=== PATIENT | male | born 1955 | race Caucasian/White ===

== ENCOUNTER → 2016-12-03 | Outpatient (CLI) | payer BC, OTHER ==
[2016-12-03 13:27] LABS: BLOOD UREA NITROGEN 13 mg/dl (7-18); GLUCOSE 274 mg/dl (70-99)
[2016-12-03 13:28] LABS: ALT/SGPT 163 U/L (12-78); AST/SGOT 115 U/L (15-37); BUN/CREATININE RATIO 13.2 (10-20); CARBON DIOXIDE 26 mmol/L (21-32); CHLORIDE 100 mmol/L (98-107); POTASSIUM 4.3 mmol/L (3.5-5.1); SODIUM 136 mmol/L (136-145)
[2016-12-03 13:38] LABS: ALB/GLOB RATIO 0.9 (0.9-2); ALKALINE PHOSPHATASE 108 U/L (45-117); CHOLESTEROL 190 mg/dl (0-200); CHOLESTEROL/HDL RATIO 3.5; HDL CHOLESTEROL 55 mg/dl; LDL CHOLESTEROL CALCULATED 109 mg/dl; TRIGLYCERIDES 131 mg/dl (0-150); VERY LOW DENSITY LIPOPROT CALC 26 mg/dl
[2016-12-03 14:06] LABS: HEMATOCRIT 45.5 % (42-52); MEAN CELL VOLUME 96.6 fL (80-100); MEAN CORPUSCULAR HEMOGLOBIN 34.4 pg (25-34); MEAN CORPUSCULAR HGB CONC 35.6 g/dl (32-36); MEAN PLATELET VOLUME 11.7 fL (7.4-10.4); PLATELET COUNT 100 K/uL (130-400); RED BLOOD COUNT 4.71 M/uL (4.7-6.1); WHITE BLOOD COUNT 4.18 K/uL (4.8-10.8)
== END | disposition home or self-care (01) ==
LOC: C.LABMFLN 10:43
PROVIDERS: ATTEND Family Medicine
DX: Z00.00 Encounter for general adult medical examination without abnormal findings (principal); Z13.1 Encounter for screening for diabetes mellitus; Z13.220 Encounter for screening for lipoid disorders; E78.01 Familial hypercholesterolemia; R53.83 Other fatigue; Z12.12 Encounter for screening for malignant neoplasm of rectum; Z12.11 Encounter for screening for malignant neoplasm of colon; I10 Essential (primary) hypertension; R68.82 Decreased libido

== ENCOUNTER → 2017-05-02 | Outpatient (CLI) | payer BC ==
[2017-05-02 13:25] LABS: ESTIMATED AVERAGE GLUCOSE 189 mg/dl; HA1C FLAG Normal (Normal)
== END | disposition home or self-care (01) ==
LOC: C.LABMFLN 10:03
PROVIDERS: ATTEND Family Medicine
DX: E11.9 Type 2 diabetes mellitus without complications (principal); F10.20 Alcohol dependence, uncomplicated

== ENCOUNTER 2019-07-30 18:37 | Inpatient (IN) ==
[2019-07-30] MEDS ORDERED: SODIUM CHLORIDE 0.9% 1000ML 1,000 ML IV SCH (18:45)
[2019-07-30 19:11] LABS: Appearance Urine Clear (Clear); Bilirubin Urine Negative (Negative); Blood Urine Negative (Negative); Color Urine Dark Yellow; Glucose Urine UA 3+ (Negative); Ketones Urine Negative (Negative); Leukocyte Esterase Urine Negative (Negative); Nitrite Urine Negative (Negative); Protein Urine Negative (Negative); Specific Gravity Urine 1.036 (1.000-1.030); Urobilinogen Urine Negative (Negative)
[2019-07-30 19:18] LABS: Basophils # (auto) 0.01 K/uL (0-0.2); Basophils % (auto) 0.1 %; Eosinophils # (auto) 0.04 K/uL (0-0.5); Eosinophils % (auto) 0.6 %; Hematocrit (blood only) 47.4 % (42-52); Hemoglobin 16.8 g/dL (14.0-18.0); Immature Granulocytes # (auto) 0.02 K/uL (0.00-0.02); Immature Granulocytes % (auto) 0.3 %; Lymphocytes # (auto) 1.05 K/uL (1.2-3.4); Mean Corpuscular Hemoglobin 34.1 pg (25-34); Mean Corpuscular Hgb Conc 35.4 g/dL (32-36); Mean Corpuscular Volume 96.1 fL (80-100); Mean Platelet Volume 11.4 fL (7.4-10.4); Monocytes # (auto) 0.56 K/uL (0.11-0.59); Neutrophils # (auto) 5.31 K/uL (1.4-6.5); Platelet Count 124 K/uL (130-400); RDW Standard Deviation 45.4 fL (36.4-46.3); Red Blood Count 4.93 M/uL (4.7-6.1); White Blood Count 6.99 K/uL (4.8-10.8)
[2019-07-30 19:41] LABS: Albumin Globulin Ratio 0.8 (0.9-2); Albumin Level 3.9 gm/dl (3.4-5.0); BUN Creatinine Ratio 14.6 (10-20); Bilirubin,Total 1.1 mg/dl (0.2-1); Calcium 9.8 mg/dl (8.5-10.1); Creatinine Clr Calc Pharmacy 87.7 ml/min; Est GFR (African American) 86.8; Est GFR (Non-African American) 74.8; Globulin 5.1 gm/dl (2.5-4.0)
--- NOTE | 2019-07-30 19:52 | CT Scan Report ---
CT SCAN OF THE ABDOMEN AND PELVIS WITHOUT CONTRAST CLINICAL HISTORY: Abdominal pain. Diabetes. COMPARISON STUDY: No previous studies for comparison. TECHNIQUE: CT scan of the abdomen and pelvis was performed from the lung bases to the proximal femurs . Images are reviewed in the axial, sagittal, and coronal planes. IV contrast was not administered fo r this examination. A dose lowering technique was utilized adhering to the principles of ALARA. CT DOSE: 773.52 mGy.cm FINDINGS: Lower chest: There are linear parenchymal opacities at the lung bases, likely atelectatic. Liver: The unenhanced liver is normal in size, contour, and attenuation. There is no intrahepatic olivia iary ductal dilatation. Gallbladder: Unremarkable. Spleen: Enlarged measuring 16 cm Pancreas: No intrinsic pancreatic masses are visualized in this noncontrast study. There is no ductal dilatation. Adrenal glands: Unremarkable. Kidneys: No renal, ureteral, or bladder calculi are visualized. There is no hydronephrosis. Bowel: There are no transition zones indicate bowel obstruction. There are scattered colonic divertic vini. There is no evidence of acute diverticulitis. The appendix appears normal. Peritoneum: There is trace pelvic free fluid. There is no free intraperitoneal air. There is a tiny f at-containing umbilical hernia and small fat-containing inguinal hernias. Vasculature: The abdominal aorta is normal in course and caliber. Adenopathy: There are minimally prominent mesenteric lymph nodes. There is infiltration of the centra l mesentery. Pelvic viscera: The bladder, and pelvic viscera are unremarkable. Skeletal structures: No destructive osseous lesions are seen. IMPRESSION: 1. No evidence of bowel obstruction. No evidence of free air 2. No evidence of acute diverticulitis. No evidence of acute appendicitis 3. No renal, ureteral, or bladder calculi identified 4. Lesley mesentery with trace free pelvic fluid. Likely diagnostic considerations include mesenteric panniculitis, pancreatitis, or venoocclusive disease. Lymphoma is also within differential, but not f elt likely as the patient's mesenteric lymph nodes do not exceed 1 cm in short axis. 5. Splenomegaly Electronically signed by: Shoaib Davidson M.D. 07/30/2019 7:50 PM
[2019-07-30 20:14] LABS: Potassium 4.1 mmol/L (3.5-5.1)
[2019-07-30] MEDS ORDERED: OPTIRAY 320 125ml IV PRN (20:40)
--- NOTE | 2019-07-30 20:59 | CT Scan Report ---
CT angio abdomen pelvis w con CT DOSE: 1718.41 mGy.cm CLINICAL HISTORY: Severe mid abdominal pain. Abnormal noncontrast CT scan with mesenteric edema. Eval uate for vascular etiology. TECHNIQUE: CT angiography of the abdomen and pelvis was performed in a dynamic helical fashion during intravenous administration of 116 cc of Optiray 320. Arterial phase and portal phase imaging was per formed. MIP images were acquired. A dose lowering technique was utilized adhering to the principles of ALARA. COMPARISON STUDY: Noncontrast examination performed 07/30/2019 FINDINGS: There is no evidence for abdominal aortic aneurysm. There is no evidence for celiac, superior mesenteric, renal, or inferior mesenteric artery stenosis. There is no evidence for iliac artery stenosis. There is no evidence for aortic dissection. Portal venous phase imaging demonstrates thrombosis of the superior mesenteric vein and multiple SMA branches. There is associated mesenteric edema. The thrombus extends into the portal vein. There is n o evidence for splenic vein thrombosis. IMPRESSION: 1. No evidence of arterial stenosis or occlusion 2. 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 Electronically signed by: Shoaib Davidson M.D. 07/30/2019 8:57 PM
[2019-07-30] MEDS ORDERED: SODIUM CHLORIDE 0.9% 1000ML 1,000 ML IV STA (21:20)
[2019-07-30] MEDS ORDERED: Heparin IV Low Dose WITH Bolus STA (21:20)
[2019-07-30] MEDS ORDERED: HEPARIN SOD (PORCINE) 1000 UNIT/ML 10 ML VIAL ONE (21:28)
[2019-07-30] MEDS: HEPARIN SODIUM/DEXTROSE 25,000 UNITS/500 ML BAG IV SCH (21:35)
[2019-07-30 21:40] LABS: INR 1.1 (0.9-1.1); Partial Thromboplastin Time 26.2 Seconds (21.0-31.0); Prothrombin Time 10.8 Seconds (9.0-12.0)
--- NOTE | 2019-07-30 23:52 | History & Physical Report ---
Date of Service July 30, 2019 Assessment & Plan (1) Superior mesenteric vein thrombosis: 64-year-old male with history of diabetes, fatty liver presents with abdominal pain, bloating and decreased appetite x1 week. Likely in the setting of chronic liver disease with portal hypertension and congestive splenomegaly. Superior mesenteric vein and portal vein thrombosis with splenomegaly: Likely in the setting of chronic liver disease with portal hypertension and congestive splenomegaly versus possible hypercoagulable disorder Patient reports history of fatty liver diagnosis based on biopsy when he was age 39-40 Vitals stable CTA abdomen/pelvis: SMV thrombosis with extension into proximal portal vein Abdomen/pelvis CT: Splenomegaly, louis mesentery with trace pelvic fluid and given above findings likely related to venoocclusive disease LFT abnormalities: Total bili 1.1, AST 56 Started on heparin drip Hypercoagulable work-up not ordered as patient already started on heparin GI consulted Thrombocytopenia: Likely related to alcohol intake and chronic liver disease with portal hypertension congestive splenomegaly Platelet count 124 Continue to monitor Diabetes Hemoglobin A1c ordered On SSI FEN/GI: N.p.o. for possible procedure, on NS 125 cc/h DVT prophylaxis: Heparin Code: Full Disposition: PCU (2) Portal vein thrombosis: (3) Diabetes: (4) Fatty liver determined by biopsy: (5) Thrombocytopenia: History of Present Illness Chief Complaint: Abdominal pain, bloating, decreased appetite Primary Care Provider: Migue Adan MD 64-year-old male with history of diabetes, fatty liver presents with abdominal pain, bloating and decreased appetite x1 week. Patient reports being on vacation at [facility] from July 18 to July 25. He reports 2-hour flight and then 2-hour car ride to destination during which he was very sedent jamila. Then he partied hard with family for about 3 days, drank alcohol pretty much every dayChampion in the morning and a beer every hour until late at night with very little fluid intake. 5 days into his trip he developed abdominal cramping, bloating and decreased appetite and he had not had a bowel movement for about 3 days at that point. He finally had a normal bowel movement 2 days later. He returned last Saturday on the with similar symptoms and treated constipation with laxative after which she had some diarrhea but stool was nonbloody and not dark. He has become constipated again but has also had very little intake since start of symptoms. He also reports discomfort when he does attempt to eat. He denies any fever, chills, headache, lightheadedness, shortness of breath, chest pain, nausea, vomiting, hematuria, hematochezia, melena, dysuria. Reports history of fatty liver since biopsy at age 39-40. He reports elevated liver enzymes since age 27, his AST has usually been in the 150s. He reports being a heavy drinker most of his life, mainly binge drinks when he is social on the weekends especially. Denies any personal or family history of bleeding disorders or blood clots Social history: Reports drinking anywhere from 3-7 alcoholic drinks every weekend day, denies smoking and recreational drug use Family history: Father of cirrhosis at age 50, mother at age 80 of sepsis, one sibling has alcoholism otherwise siblings are healthy, children all healthy Surgical history: None Allergies Allergy/AdvReac Type Severity Reaction Status Date / Time No Known Allergies Allergy Verified 07/30/19 19:32 Home Medications Home Medications Medication Instructions Recorded Confirmed Type multivitamin tablet 1 tab PO DAILY #90 tab 07/20/19 07/30/19 Rx metformin 750 mg PO DAILY 07/30/19 07/30/19 History Past Med/Surg History Medical History Cirrhosis (Chronic) Alcoholism (Chronic) Diabetes (Chronic) Surgical History No pertinent past surgical history Family History Father Alcoholism, Onset Age: 50 Cirrhosis Brother Alcoholism Social History Preferred Language: Welsh Communication Ability: Effective Beliefs That Will Affect Care: None Current Living Situation: Spouse Feels Safe at Home: Yes Safety Concerns: Feels Safe At This Time Smoking Status: Never smoker Do You Dip or Chew Tobacco: No ; Hx Alcohol Use: Yes Alcohol type: beer Hx Substance Use: No Review of Systems Review of Systems: As per HPI Physical Exam Physical Exam: General: In NAD, pleasant Neuro: A&O x 4 Pulm: CTAB equal breath sounds bilaterally CV: RRR, no m/r/g, cap refill 3 secs Abdomen:+BS, TTP in epigastric and lorraine-umbilical region, somewhat distended, obese abdomen LE: no LE edema, no calf TTP Results & Data Vital Signs (Past 12 Hours) Vital Signs Temp Pulse Pulse Resp BP BP Pulse Ox 07/30/19 23:15 69 18 139/88 96 07/30/19 21:15 65 16 131/86 95 07/30/19 19:57 76 16 133/73 93 07/30/19 18:38 36.9 C 83 16 142/88 H 100 Laboratory Results Abnormal lab results 07/30/19 07/30/19 07/30/19 Range/Units 19:00 19:00 19:00 MCH 34.1 H (25-34) pg Plt Count 124 L (130-400) K/uL MPV 11.4 H (7.4-10.4) fL Lymph # (Auto) 1.05 L (1.2-3.4) K/uL Glucose 224 H (70-99) mg/dl Total Bilirubin 1.1 H (0.2-1) mg/dl AST (15-37) U/L Total Protein 9.0 H (6.4-8.2) gm/dl Globulin 5.1 H (2.5-4.0) gm/dl Albumin/Globulin Ratio 0.8 L (0.9-2) Ur Specific [place] 1.036 H (1.000-1.030) Urine Glucose (UA) 3+ H (Negative) 07/30/19 Range/Units 19:49 MCH (25-34) pg Plt Count (130-400) K/uL MPV (7.4-10.4) fL Lymph # (Auto) (1.2-3.4) K/uL Glucose (70-99) mg/dl Total Bilirubin (0.2-1) mg/dl AST 56 H (15-37) U/L Total Protein (6.4-8.2) gm/dl Globulin (2.5-4.0) gm/dl Albumin/Globulin Ratio (0.9-2) Ur Specific [place] (1.000-1.030) Urine Glucose (UA) (Negative) Diagnostic Findings CT angio abdomen pelvis w con CT DOSE: 1718.41 mGy.cm CLINICAL HISTORY: Severe mid abdominal pain. Abnormal noncontrast CT scan with mesenteric edema. Evaluate for vascular etiology. TECHNIQUE: CT angiography of the abdomen and pelvis was performed in a dynamic helical fashion during intravenous administration of 116 cc of Optiray 320. Arterial phase and portal phase imaging was performed. MIP images were acquired. A dose lowering technique was utilized adhering to the principles of ALARA. COMPARISON STUDY: Noncontrast examination performed 07/30/2019 FINDINGS: There is no evidence for abdominal aortic aneurysm. There is no evidence for celiac, superior mesenteric, renal, or inferior mesenteric artery stenosis. There is no evidence for iliac artery stenosis. There is no evidence for aortic dissection. Portal venous phase imaging demonstrates thrombosis of the superior mesenteric vein and multiple SMA branches. There is associated mesenteric edema. The thrombus extends into the portal vein. There is no evidence for splenic vein thrombosis. IMPRESSION: 1. No evidence of arterial stenosis or occlusion 2. 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 CT SCAN OF THE ABDOMEN AND PELVIS WITHOUT CONTRAST CLINICAL HISTORY: Abdominal pain. Diabetes. COMPARISON STUDY: No previous studies for comparison. TECHNIQUE: CT scan of the abdomen and pelvis was performed from the lung bases to the proximal femurs. Images are reviewed in the axial, sagittal, and coronal planes. IV contrast was not administered for this examination. A dose lowering technique was utilized adhering to the principles of ALARA. CT DOSE: 773.52 mGy.cm FINDINGS: Lower chest: There are linear parenchymal opacities at the lung bases, likely atelectatic. Liver: The unenhanced liver is normal in size, contour, and attenuation. There is no intrahepatic biliary ductal dilatation. Gallbladder: Unremarkable. Spleen: Enlarged measuring 16 cm Pancreas: No intrinsic pancreatic masses are visualized in this noncontrast study. There is no ductal dilatation. Adrenal glands: Unremarkable. Kidneys: No renal, ureteral, or bladder calculi are visualized. There is no hydr onephrosis. Bowel: There are no transition zones indicate bowel obstruction. There are scattered colonic diverticula. There is no evidence of acute diverticulitis. The appendix appears normal. Peritoneum: There is trace pelvic free fluid. There is no free intraperitoneal air. There is a tiny fat-containing umbilical hernia and small fat-containing inguinal hernias. Vasculature: The abdominal aorta is normal in course and caliber. Adenopathy: There are minimally prominent mesenteric lymph nodes. There is infiltration of the central mesentery. Pelvic viscera: The bladder, and pelvic viscera are unremarkable. Skeletal structures: No destructive osseous lesions are seen. IMPRESSION: 1. No evidence of bowel obstruction. No evidence of free air 2. No evidence of acute diverticulitis. No evidence of acute appendicitis 3. No renal, ureteral, or bladder calculi identified 4. Louis mesentery with trace free pelvic fluid. Likely diagnostic considerations include mesenteric panniculitis, pancreatitis, or venoocclusive disease. Lymphoma is also within differential, but not felt likely as the patient's mesenteric lymph nodes do not exceed 1 cm in short axis. 5. Splenomegaly Code Status & VTE Plan Code Status Full VTE Prophylaxis Plan VTE Prophylaxis will be ordered: Yes Supervising Physician Co-Signing Physician Notes Attending addendum: I have physically seen this patient, have supervised the medical residents activities, and agree with the H&P unless as otherwise noted. Assessment and Plan: Superior mesenteric vein thrombosis/portal vein thrombosis/splenomegaly/fatty liver by biopsy diagnosis age 41- Likely an element of portal hypertension. Unable to order hypercoagulable work-up due to ED starting heparin infusion before it could be ordered. Consult gastroenterology. Patient likely should have an EGD to assess for possible associations of portal hypertension touches varices. Thrombocytopenia- Order a peripheral smear. Diabetes mellitus- Placed on Accu-Cheks before meals and at bedtime with NovoLog coverage per scale. Order hemoglobin A1c. Remaining orders and notations as noted. PG Care Time/CCT Total # of Minutes Spent Total Time Spent with Patient: Total time spent is greater than 50% in coordination of care (as documented) at patient's floor/unit and/or counseling patient: Resident Activity Tracking Resident Involvement: Resident Care Provided Care Provided: Adult Hospital Medicine
[2019-07-31] MEDS ORDERED: ALUMINUM/MAGNESIUM SUSP 30 ML UDC PO PRN (00:07)
[2019-07-31] MEDS ORDERED: ACETAMINOPHEN 325 MG TAB PO PRN (00:07)
[2019-07-31] MEDS ORDERED: ONDANSETRON INJ 2 MG/ML 2 ML VIAL IV PRN (00:07)
[2019-07-31] MEDS ORDERED: POLYETHYLENE (MIRALAX) 17 GM PACK PO PRN (00:07)
[2019-07-31] MEDS ORDERED: DEXTROSE 50% 50 ML SYRINGE IV PRN (00:15)
[2019-07-31] MEDS: SODIUM CHLORIDE 0.9% 1000ML 1,000 ML IV SCH ×4 (00:15→21:42)
[2019-07-31] MEDS ORDERED: GLUCOSE 40% GEL 15 GM TUBE PO PRN (00:15)
[2019-07-31] MEDS ORDERED: CARBOHYDRATES FOR HYPOGLYCEMIA PO PRN (00:15)
[2019-07-31] MEDS ORDERED: GLUCOSE 10 TABS/TUBE PO PRN (00:15)
[2019-07-31] MEDS ORDERED: GLUCAGON FOR INJ 1 MG VIAL SQ PRN (00:15)
--- NOTE | 2019-07-31 02:38 | Emergency Department Note ---
Entered by Cintia Botello acting as a scribe for Guillermo Brandt MD ED Provider Note CHIEF COMPLAINT: Abdominal pain HISTORY OF PRESENT ILLNESS: The patient is a 64 year old male who presents to the Emergency Room with complaints of diffuse abdominal pain that began about a week ago. The patient states that he was on vacation in [place] over the past week, where he drank more alcoholic beverages than usual. He reports first feeling abdominal pain when he went to dinner and ate some oysters. After dinner, he noted feeling blo ated and sore in his abdomen. He states that the pain is located in the middle of his stomach and does not radiate to his back. He currently rates the pain at an 8 and states that it feels like trapped gas. The patient reports some cramping, and states some of his pain is relieved when he is walking. He also complains of constipation and reports taking a laxative several days ago, which worked for the time being and gave some relief; however, he still had trouble making bowel movements after that. Today he experienced some chills, and complains of a significantly decreased appetite. The patient is diabetic and takes Metformin. He reports his sugar being slightly high today at 290. He has had no previous stomach surgeries. Pt denies LOC, headache, fevers, diaphoresis, visual changes, neck pain, chest pain, breathing difficulties, nausea, vomiting, back pain, melena, hematochezia, urinary symptoms, numbness, weakness, lymphadenopathy, rash, or other complaints. REVIEW OF SYSTEMS: See HPI for pertinent positives and negatives. A total of ten systems were reviewed and were otherwise negative. PMHx/PSHx: Diabetes SOCIAL HISTORY: Patient lives at home. PHYSICAL EXAM: GENERAL: Awake, alert, well-appearing, in no distress HENT: Normocephalic, atraumatic. Oropharynx unremarkable. EYES: PERRL. Normal conjunctiva. Sclera non-icteric. NECK: Inspection normal. Non-tender. Supple. No nuchal rigidity. FROM. No masses. RESPIRATORY: Clear to auscultation. No wheezes. No rales. Normal respiratory effort. CARDIAC: Normal rate. Normal rhythm. No murmurs. No rubs. Extremities warm and well perfused. Pulses equal. No JVD. GI: Mid and right lower quadrant abdominal tenderness. Soft, non-distended. No rebound or guarding. No masses. RECTAL: Deferred. MUSCULOSKELETAL: Atraumatic. Chest examination reveals no tenderness. The back is symmetrical on inspection without obvious abnormality. There is no CVA tenderness to palpation. No joint edema. LOWER EXTREMITIES: Calves are equal size bilaterally and non-tender. No edema. No discoloration. NEURO: Normal sensorium. No sensory or motor deficits noted. SKIN: No rash or jaundice noted. EMERGENCY DEPARTMENT COURSE: 1847: Past medical records reviewed. The patient was evaluated in room C10, and a complete history and physical examination were performed. 2000: I spoke to Dr. Davidson, radiologist, who recommended an IV only CT A & V scan for further assessment of the patients abdominal pain. I updated the patient, and he is now on his way to get his repeat CT scan. 2117: I again spoke to Dr. Davidson after the patient's repeat CT scan. 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 2131: I talked to Dr. Hunt, [facility] hospitalist, who agreed to take over care for the patient. He also recommended a GI consult, so Dr. Garcia was called to examine the patient. The patient verbally expressed understanding and agreement of the treatment plan. The patient will be evaluated for further meggan atment. 2144: I spoke to Dr. Garcia, who recommends coagulation for the patient and for internal medicine to consult with hematology. MEDICAL DECISION MAKING: C10 Triage Nursing notes reviewed and agree them. The patient's history was concerning for abdominal pain. Differential diagnosis: Etiologies such as appendicitis, diverticulitis, PUD, biliary pathology, UTI, pancreatitis, obstruction, mesenteric ischemia, aortic pathology, infections, inflammatory bowel disease, renal colic, as well as others were entertained. Physical examination findings: As above. ER treatment provided: Normal saline hydration Patient declined analgesia On reassessment the patient felt about the same. IV normal saline hydration IV heparin bolus and drip Diagnostics interpreted by me: ECG: Sinus rhythm with premature supraventricular complexes. The labs revealed an unremarkable CBC and chemistry panel for mild hyperglycemia. Urinalysis did not reveal any sign of infection. Glucose noted. Imaging studies: CT scan of the abdomen pelvis without contrast revealed a wispy mesentery and contrast-enhanced CT scan recommended. 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 The patient will need anticoagulated hydrated and admitted to hospital. Consultation: I did discuss the patient's CT findings and further imaging with Dr. Shoaib Davidson of radiology. He recommended a CT angio of the abdomen both arterial and venous phases. This was ordered. Patient was informed. A consultation was placed with internal medicine, Dr. Augutsine Euceda. This was discussed and diagnostics were reviewed. He asked for GI to be consulted. He will admit the patient. A consultation was placed with Dr. Garcia of gastroenterology. Discussed and diagnostics were reviewed. Noted that without other GI issues the primarily hematologic. He recommended coagulation and additional consultation. This discussion was referred to and they will continue the work-up and additional consultation as an inpatient. IMPRESSION: SMV thrombosis Partial portal vein thrombosis Right sided abdominal pain Hyperglycemia PLAN: Admit CRITICAL CARE: I have personally spent 45 minutes of critical care time in the direct management of this patient. This includes bedside care, interpretation of diagnostic studies, and testing, discussion with consultants, patient, and other required patient management activities. This 45 minutes is in excess of all separately billable procedures. The scribe's documentation has been prepared under my direction and personally reviewed by me in its entirety. I confirm that the note above accurately reflects all work, treatment, procedures, and medical decision making performed by me. Impression & Plan Superior mesenteric vein thrombosis, Right sided abdominal pain, Hyperglycemia, Portal vein thrombosis Past Med/Surg History Medical History Diabetes (Chronic) Surgical History No pertinent past surgical history Social History Preferred Language: Luxembourgish Communication Ability: Effective Beliefs That Will Affect Care: None Current Living Situation: Spouse Feels Safe at Home: Yes Safety Concerns: Feels Safe At This Time Smoking Status: Never smoker Do You Dip or Chew Tobacco: No ; Hx Alcohol Use: Yes Alcohol type: beer Hx Substance Use: No Results & Data Vital Signs Vital Signs - 24 hr 07/30/19 18:38 07/30/19 19:57 07/30/19 21:15 Temperature 36.9 C Temperature Source Oral Sepsis Recent Fever Within 48 Hours No Sepsis Action Taken by Nursing No Action Required Pulse Rate 83 Pulse Rate [Left Finger] 76 65 Pulse Rhythm Regular Pulse Strength Normal Respiratory Rate 16 16 16 Respiratory Effort / Characteristics Non-Labored Respiratory Depth Normal Respiratory Pattern Regular Blood Pressure 142/88 H Blood Pressure [Right Arm] 133/73 131/86 Blood Pressure Mean 106 Blood Pressure Mean [Right Arm] 93 101 Blood Pressure Position Sitting Pulse Oximetry 100 93 95 Oxygen Delivery Method Room Air Room Air Room Air 07/30/19 23:15 Temperature Temperature Source Sepsis Recent Fever Within 48 Hours Sepsis Action Taken by Nursing Pulse Rate Pulse Rate [Left Finger] 69 Pulse Rhythm Pulse Strength Respiratory Rate 18 Respiratory Effort / Characteristics Respiratory Depth Respiratory Pattern Blood Pressure Blood Pressure [Right Arm] 139/88 Blood Pressure Mean Blood Pressure Mean [Right Arm] 105 Blood Pressure Position Pulse Oximetry 96 Oxygen Delivery Method Room Air Home Medications Current Medication List: was personally reviewed by me Laboratory Data Attestation: I reviewed the patient's lab results. Result diagrams: 07/30/19 19:00 07/30/19 19:49 Lab Results 07/30/19 07/30/19 07/30/19 Range/Units 19:00 19:00 19:00 WBC 6.99 (4.8-10.8) K/uL RBC 4.93 (4.7-6.1) M/uL Hgb 16.8 (14.0-18.0) g/dL Hct 47.4 (42-52) % MCV 96.1 (80-100) fL MCH 34.1 H (25-34) pg MCHC 35.4 (32-36) g/dL RDW Std Deviation 45.4 (36.4-46.3) fL RDW Coeff of Sharif 13.0 (11.5-14.5) % Plt Count 124 L (130-400) K/uL MPV 11.4 H (7.4-10.4) fL Immature Gran % (Auto) 0.3 % Neut % (Auto) 76.0 % Lymph % (Auto) 15.0 % [place] % (Auto) 8.0 % Eos % (Auto) 0.6 % Baso % (Auto) 0.1 % Immature Gran # (Auto) 0.02 (0.00-0.02) K/uL Neut # (Auto) 5.31 (1.4-6.5) K/uL Lymph # (Auto) 1.05 L (1.2-3.4) K/uL [place] # (Auto) 0.56 (0.11-0.59) K/uL Eos # (Auto) 0.04 (0-0.5) K/uL Baso # (Auto) 0.01 (0-0.2) K/uL Absolute Nucleated RBC 0.00 (0-0) K/uL Nucleated RBC % (auto) 0.0 % PT (9.0-12.0) Seconds INR (0.9-1.1) APTT (21.0-31.0) Seconds PTT Ratio Sodium 137 (136-145) mmol/L Potassium (3.5-5.1) mmol/L Chloride 105 (98-107) mmol/L Carbon Dioxide 26 (21-32) mmol/L Anion Gap 6.0 (3-11) BUN 15 (7-18) mg/dl Creatinine 1.06 (0.6-1.4) mg/dl Est Cr Clr Drug Dosing 87.7 ml/min Est GFR ( Amer) 86.8 Est GFR (Non-Af Amer) 74.8 BUN/Creatinine Ratio 14.6 (10-20) Glucose 224 H (70-99) mg/dl Calcium 9.8 (8.5-10.1) mg/dl Total Bilirubin 1.1 H (0.2-1) mg/dl AST (15-37) U/L ALT 73 (12-78) U/L Alkaline Phosphatase 112 (45-117) U/L Total Protein 9.0 H (6.4-8.2) gm/dl Albumin 3.9 (3.4-5.0) gm/dl Globulin 5.1 H (2.5-4.0) gm/dl Albumin/Globulin Ratio 0.8 L (0.9-2) Amylase (25-115) U/L Lipase 135 (73-393) U/L Urine Color Dark Yellow Urine Appearance Clear (Clear) Urine pH 6.0 (4.5-7.5) Ur Specific [place] 1.036 H (1.000-1.030) Urine Protein Negative (Negative) Urine Glucose (UA) 3+ H (Negative) Urine Ketones Negative (Negative) Urine Blood Negative (Negative) Urine Nitrite Negative (Negative) Urine Bilirubin Negative (Negative) Urine Urobilinogen Negative (Negative) Ur Leukocyte Esterase Negative (Negative) 07/30/19 07/30/19 Range/Units 19:49 19:49 WBC (4.8-10.8) K/uL RBC (4.7-6.1) M/uL Hgb (14.0-18.0) g/dL Hct (42-52) % MCV (80-100) fL MCH (25-34) pg MCHC (32-36) g/dL RDW Std Deviation (36.4-46.3) fL RDW Coeff of Sharif (11.5-14.5) % Plt Count (130-400) K/uL MPV (7.4-10.4) fL Immature Gran % (Auto) % Neut % (Auto) % Lymph % (Auto) % [place] % (Auto) % Eos % (Auto) % Baso % (Auto) % Immature Gran # (Auto) (0.00-0.02) K/uL Neut # (Auto) (1.4-6.5) K/uL Lymph # (Auto) (1.2-3.4) K/uL [place] # (Auto) (0.11-0.59) K/uL Eos # (Auto) (0-0.5) K/uL Baso # (Auto) (0-0.2) K/uL Absolute Nucleated RBC (0-0) K/uL Nucleated RBC % (auto) % PT 10.8 (9.0-12.0) Seconds INR 1.1 (0.9-1.1) APTT 26.2 (21.0-31.0) Seconds PTT Ratio 1.0 Sodium (136-145) mmol/L Potassium 4.1 (3.5-5.1) mmol/L Chloride (98-107) mmol/L Carbon Dioxide (21-32) mmol/L Anion Gap (3-11) BUN (7-18) mg/dl Creatinine (0.6-1.4) mg/dl Est Cr Clr Drug Dosing ml/min Est GFR ( Amer) Est GFR (Non-Af Amer) BUN/Creatinine Ratio (10-20) Glucose (70-99) mg/dl Calcium (8.5-10.1) mg/dl Total Bilirubin (0.2-1) mg/dl AST 56 H (15-37) U/L ALT (12-78) U/L Alkaline Phosphatase (45-117) U/L Total Protein (6.4-8.2) gm/dl Albumin (3.4-5.0) gm/dl Globulin (2.5-4.0) gm/dl Albumin/Globulin Ratio (0.9-2) Amylase 34 (25-115) U/L Lipase (73-393) U/L Urine Color Urine Appearance (Clear) Urine pH (4.5-7.5) Ur Specific [place] (1.000-1.030) Urine Protein (Negative) Urine Glucose (UA) (Negative) Urine Ketones (Negative) Urine Blood (Negative) Urine Nitrite (Negative) Urine Bilirubin (Negative) Urine Urobilinogen (Negative) Ur Leukocyte Esterase (Negative) Administered Medications Heparin Sodium/Dextrose (Heparin Sodium/Dextrose) 25,000 units in 500 mls @ 20 mls/hr IV .Q24H GRECIA; Protocol Stop: 08/29/19 21:29 Last Admin: 07/30/19 21:35 Dose: 1,000 units/hr, 20 mls/hr Documented by: [id number] Cosigned by: [id number] Sodium Chloride (Nss 1000ml) 1,000 mls @ 125 mls/hr IV .Q8H GRECIA Stop: 08/30/19 00:06 Last Admin: 07/31/19 00:15 Dose: 125 mls/hr Documented by: [id number] Ioversol (Optiray 320 125ml) 116 ml IV ONCE PRN PRN Reason: Interaction Checking Stop: 08/03/19 20:39 Last Admin: 07/30/19 20:41 Dose: 116 ml Documented by: [id number] Discontinued Medications Heparin Sodium (Porcine) (Heparin Iv Bolus) Confirm Administered Dose 10,000 units .ROUTE .STK-MED ONE Stop: 07/30/19 21:29 Last Admin: 07/30/19 21:37 Dose: 4,000 units Documented by: [id number] Cosigned by: [id number] Heparin Sodium/Dextrose () 1 ea N/A NOW STA; Protocol Stop: 07/30/19 21:21 Last Admin: 07/30/19 21:37 Dose: Not Given Documented by: [id number] Sodium Chloride (Nss 1000ml) 1,000 mls @ 999 mls/hr IV .Q1H1M GRECIA Stop: 07/30/19 19:45 Last Infusion: 07/30/19 20:22 Dose: 0 mls/hr Documented by: [id number] Admin: 07/30/19 19:17 Dose: 999 mls/hr Documented by: [id number] Sodium Chloride (Nss 1000ml) 1,000 mls @ 125 mls/hr IV .Q8H STA Stop: 07/31/19 05:19 Last Infusion: 07/31/19 00:59 Dose: 0 mls/hr Documented by: [id number] Admin: 07/30/19 21:35 Dose: 125 mls/hr Documented by: [id number] Imaging Data Radiologist's Impression: Radiology results as stated below per my review and the radiologist's interpretation: CT SCAN OF THE ABDOMEN AND PELVIS WITHOUT CONTRAST CLINICAL HISTORY: Abdominal pain. Diabetes. COMPARISON STUDY: No previous studies for comparison. TECHNIQUE: CT scan of the abdomen and pelvis was performed from the lung bases to the proximal femurs. Images are reviewed in the axial, sagittal, and coronal planes. IV contrast was not administered for this examination. A dose lowering technique was utilized adhering to the principles of ALARA. CT DOSE: 773.52 mGy.cm FINDINGS: Lower chest: There are linear parenchymal opacities at the lung bases, likely atelectatic. Liver: The unenhanced liver is normal in size, contour, and attenuation. There is no intrahepatic biliary ductal dilatation. Gallbladder: Unremarkable. Spleen: Enlarged measuring 16 cm Pancreas: No intrinsic pancreatic masses are visualized in this noncontrast study. There is no ductal dilatation. Adrenal glands: Unremarkable. Kidneys: No renal, ureteral, or bladder calculi are visualized. There is no hydronephrosis. Bowel: There are no transition zones indicate bowel obstruction. There are scattered colonic diverticula. There is no evidence of acute diverticulitis. The appendix appears normal. Peritoneum: There is trace pelvic free fluid. There is no free intraperitoneal air. There is a tiny fat-containing umbilical hernia and small fat-containing inguinal hernias. Vasculature: The abdominal aorta is normal in course and caliber. Adenopathy: There are minimally prominent mesenteric lymph nodes. There is infiltration of the central mesentery. Pelvic viscera: The bladder, and pelvic viscera are unremarkable. Skeletal structures: No destructive osseous lesions are seen. IMPRESSION: 1. No evidence of bowel obstruction. No evidence of free air 2. No evidence of acute diverticulitis. No evidence of acute appendicitis 3. No renal, ureteral, or bladder calculi identified 4. Lesley mesentery with trace free pelvic fluid. Likely diagnostic considerations include mesenteric panniculitis, pancreatitis, or venoocclusive disease. Lymphoma is also within differential, but not felt likely as the patient's mesenteric lymph nodes do not exceed 1 cm in short axis. 5. Splenomegaly Electronically signed by: Shoaib Davidson M.D. CT angio abdomen pelvis w con CT DOSE: 1718.41 mGy.cm CLINICAL HISTORY: Severe mid abdominal pain. Abnormal noncontrast CT scan with mesenteric edema. Evaluate for vascular etiology. TECHNIQUE: CT angiography of the abdomen and pelvis was performed in a dynamic helical fashion during intravenous administration of 116 cc of Optiray 320. A rterial phase and portal phase imaging was performed. MIP images were acquired. A dose lowering technique was utilized adhering to the principles of ALARA. COMPARISON STUDY: Noncontrast examination performed 07/30/2019 FINDINGS: There is no evidence for abdominal aortic aneurysm. There is no evidence for celiac, superior mesenteric, renal, or inferior mesenteric artery stenosis. There is no evidence for iliac artery stenosis. There is no evidence for aortic dissection. Portal venous phase imaging demonstrates thrombosis of the superior mesenteric vein and multiple SMA branches. There is associated mesenteric edema. The thrombus extends into the portal vein. There is no evidence for splenic vein thrombosis. IMPRESSION: 1. No evidence of arterial stenosis or occlusion 2. 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 Electronically signed by: Shoaib Davidson M.D. 07/30/2019 8:57 PM 07/30/2019 7:50 PM ECG Data Attestation: I personally reviewed and interpreted this ECG as follows: Indication: abdominal pain Rate (beats per minute): 64 Rhythm: sinus rhythm Findings: + other (premature supraventricular complexes); no PVC, no ST depression and no ST elevation Blood Pressure Blood Pressure Findings: Normal blood pressure Blood Pressure Disposition: did not require urgent referral Discharge Plan Visit Data *Final* Discharge Date/Time: 07/31/19 00:00 Chief Complaint: Abdominal Pain Stated Complaint: STOMACH CRAMPS, SORENESS ED Provider: Guillermo Brandt Discharge Problem: Superior mesenteric vein thrombosis, Right sided abdominal pain, Hyperglycemia, Portal vein thrombosis Patient Disposition: Admitted As Inpatient Discharge Instructions Interventions: ED Discharge Assessment Last Done: 07/31/19 00:00 The scribe's documentation has been prepared under my direction and personally reviewed by me in its entirety. I confirm that the note above accurately reflects all work, treatment, procedures, and medical decision making performed by me.
[2019-07-31 03:54] LABS: Hematocrit (blood only) 41.9 % (42-52); Hemoglobin 14.6 g/dL (14.0-18.0); Mean Corpuscular Hemoglobin 33.2 pg (25-34); Mean Corpuscular Hgb Conc 34.8 g/dL (32-36); Mean Corpuscular Volume 95.2 fL (80-100); RDW Coefficient of Variation 12.9 % (11.5-14.5); RDW Standard Deviation 44.9 fL (36.4-46.3); White Blood Count 4.65 K/uL (4.8-10.8)
[2019-07-31 04:13] LABS: Albumin Level 3.1 gm/dl (3.4-5.0); BUN Creatinine Ratio 16.4 (10-20); Calcium 8.4 mg/dl (8.5-10.1); Est GFR (African American) 109.8; Est GFR (Non-African American) 94.8; Potassium 3.8 mmol/L (3.5-5.1)
[2019-07-31 04:17] LABS: INR 1.1 (0.9-1.1); Partial Thromboplastin Ratio 1.5; Prothrombin Time 10.9 Seconds (9.0-12.0)
[2019-07-31 04:21] LABS: Basophils # (auto) 0.01 K/uL (0-0.2); Basophils % (auto) 0.2 %; Eosinophils # (auto) 0.04 K/uL (0-0.5); Eosinophils % (auto) 0.9 %; Lymphocytes # (auto) 1.18 K/uL (1.2-3.4); Lymphocytes % (auto) 25.4 %; Mean Platelet Volume 10.8 fL (7.4-10.4); Monocytes # (auto) 0.46 K/uL (0.11-0.59); Monocytes % (auto) 9.9 %; Neutrophils # (auto) 2.96 K/uL (1.4-6.5); Neutrophils % (auto) 63.6 %; Platelet Count 85 K/uL (130-400); Platelet Estimate Decreased (Normal)
[2019-07-31 04:41] LABS: Albumin Globulin Ratio 0.8 (0.9-2); Globulin 3.8 gm/dl (2.5-4.0); Total Protein 6.9 gm/dl (6.4-8.2)
[2019-07-31] MEDS ORDERED: HEPARIN IV BOLUS 4,500 UNITS in SYRINGE 0 ML IV ONE (04:54)
[2019-07-31 06:14] LABS: Estimated Average Glucose 189 mg/dl; Hemoglobin A1C 8.2 % (4.5-5.6)
[2019-07-31] MEDS: INSULIN ASPART 100 UNITS/ML 3 ML PEN SC SCH ×4 (07:59→21:41)
[2019-07-31] MEDS: MULTIVITAMIN TAB PO SCH (07:59)
[2019-07-31 11:04] LABS: Partial Thromboplastin Ratio 2.2
[2019-07-31 11:14] LABS: Partial Thromboplastin Time 59.8 Seconds (21.0-31.0)
--- NOTE | 2019-07-31 15:04 | Gastrointestinal Consultation ---
Date of Consultation July 31, 2019 Assessment & Plan (1) Superior mesenteric vein thrombosis: Unclear etiology. Cirrhosis can predispose to this but does not have convincing evidence for cirrhosis of liver with normal MCV, nl PT and normal size of liver on CT. I recommend hematology consult to look for hypercoaguable states and hematologic processes that predispose. I ordered consult. In he meantime would continue anticoagulation in hopes he will recannulize the vessels. abd pain--presumably from acute SMV thrombosis. no pain at present. Ok for clears and advance as tolerated. fatty liver--discussed with patient at some point he may need liver biopsy to ascertain true extent of liver damage and the ETOH can cause liver damage. thrombocytopenia--presumably from splenomegaly mildly enlaged mesenteric nodes--await oncology opinion. History of Present Illness Reason for Consultation: SMV thrombosis Requesting Physician: DR Lit Zaragoza Attending Physician: Kayleen Elliott MD History of Present Illness CC abd pain HPI Pt has hx of elevated LFTS and states in his 30s had liver bx showing fatty liver. He states was drinking heavily then and had labs in 130s. He does drink alcohol currently on weekends. He states has hx of colon polyps and has had colonoscopies done in [facility] the last one 2-3 years ago. He developed diffuse abd pain, bloating, and constipation over the last week or son unlrelieved with laxatives. He presented to ER and had non contrast then CTA of abdomen pelvis showing SMV thrombosis with extension to portal vein, normal size of liver mildly enlarged mesenteric nodes, splenomegaly. PT is ok, pls low. LFS alb 3.1 AST 54. Allergies Allergy/AdvReac Type Severity Reaction Status Date / Time No Known Allergies Allergy Verified 07/30/19 19:32 Home Medications Home Medications Medication Instructions Recorded Confirmed Type multivitamin tablet 1 tab PO DAILY #90 tab 07/20/19 07/30/19 Rx metformin 750 mg PO DAILY 07/30/19 07/30/19 History Patient History Medical History Cirrhosis (Chronic) Alcoholism (Chronic) Diabetes (Chronic) Surgical History No pertinent past surgical history Family History Father Alcoholism, Onset Age: 50 Cirrhosis Brother Alcoholism Social History Preferred Language: Yakut Communication Ability: Effective Beliefs That Will Affect Care: None Current Living Situation: Spouse Feels Safe at Home: Yes Safety Concerns: Feels Safe At This Time Smoking Status: Never smoker Do You Dip or Chew Tobacco: No ; Hx Alcohol Use: Yes Alcohol type: beer Hx Substance Use: No Review of Systems Review of Systems: All systems reviewed & are unremarkable except as noted in HPI & below Physical Exam Constitutional: WD/WN, vitals as above Eyes: PERRL, conjunctivae normal, anicteric sclerae ENMT: external ear and nose normal, oropharynx normal Neck: trachea midline Respiratory: normal respiratory effort, lungs clear to auscultation Cardiovascular: RRR, no murmur, no edema Gastrointestinal (Abdomen): normal bowel sounds, soft, nontender, no hepatosplenomegaly Neurologic: PERRL, EOMI, accommodation nl, no face palsy, no dysarthria Psychiatric: A+Ox3, euthymic affect Results & Data Vital Signs (Past 12 Hours) Vital Signs Temp Pulse Pulse Resp BP BP Pulse Ox 07/31/19 14:00 67 20 07/31/19 11:36 36.6 C 66 19 120/73 98 07/31/19 10:40 66 16 07/31/19 10:00 74 14 07/31/19 08:00 36.8 C 68 18 131/80 98 07/31/19 07:58 36.8 C 69 15 131/80 97 07/31/19 04:00 36.8 C 68 14 122/72 96
--- NOTE | 2019-07-31 18:02 | Hospitalist Progress Note ---
Date of Service July 31, 2019 Assessment & Plan (1) Superior mesenteric vein thrombosis: Abdominal pain on admission secondary to above Only risk factor was binging and alcohol for 2 weeks Also has confirmed fatty liver with biopsy, No other risk factors, GI consult appreciated, requested oncologist/indexer consult. Had a discussion with patient about the need of having age-appropriate cancer screening including colonoscopy and PSA Continue heparin with close monitoring of platelet (2) Right sided abdominal pain: Currently improved, as (3) Hyperglycemia: Continue sliding-scale (4) Portal vein thrombosis: As above (5) Diabetes: (6) Fatty liver determined by biopsy: (7) Alcoholism: Tapering dose of Librium (8) Thrombocytopenia: Monitor closely while on heparin Could be secondary to venous thrombosis and platelets consumption Await hematology's recommendation Subjective Appears to be comfortable, laying down in bed. After long discussion with him, he reported going to [place] 2 weeks ago, was drinking alcohol heavily almost every day in [place], he said he had to interact with a lot of people and socialize with family members so he was drinking in the morning and at night. No family history of blood clots No history of blood clots in the past Denies any abdominal pain Review of Systems Review of Systems: Review of system Constitutional: No fever / no chills / no sweats / no weakness / no fatigue Eyes: no blurring of vision / no eye pain / no discharge / no redness ENT: no hearing loss / no epistaxis /no swallowing problems Respiratory: no cough / no wheezing / no SOB / no hemoptysis Cardiovascular: no Chest pain / no lower extremity edema / no palpitation Abdomen: Abdominal pain improve/ no nausea / no vomiting / no constipation Musculoskeletal: no joint pain / no muscle pain / no joint swelling Genitourinary: no dysuria / no incontinence / no urinary retention Neurologic: no focal weakness / no numbness/tingling / no ataxia Psychiatric: no depression symptoms / no anxiety / no insomnia Endocrine: no excessive thirst / no excessive urination Hematologic: no abnormal bleeding / no bruising / no LN swelling Skin: No rash / no pallor Physical Exam Physical Exam: Physical examination General patient appears to be comfortable, not in acute distress HEENT: Atraumatic , normocephalic /no jaundice /no pallor /anicteric /no dry mucous membrane /normal external ear inspection Neck: Supple /no swelling /central trach Heart: S1/S2 normal/regular rate and rhythm/no gallop /no rub /no murmur Lungs: Clear to auscultation bilaterally/normal chest with expansion/no rhonchi/no rales/no wheezing/no use of accessory muscles of respiration Abdomen: Soft/nontender/no guarding/no rebound/no organomegaly/no pulsatile mass Musculoskeletal: No swelling/no edema/no tenderness/normal range of motion Neuro exam: Awake alert oriented 3/cranial nerves II through XII appear to be intact/sensation intact/moves all extremities/no abnormal movements Psychiatric evaluation: No depressed mood/normal affect Skin: No rash on exposed skin area/no erythema Extremity: Normal pulse/no pitting edema/no clubbing or cyanosis Endocrine/lymphatic: No obvious lymphadenopathy /no lymphedema Results & Data Vital Signs (Past 12 Hours) Vital Signs Temp Pulse Pulse Resp BP BP Pulse Ox 07/31/19 14:00 67 20 07/31/19 11:36 36.6 C 66 19 120/73 98 07/31/19 10:40 66 16 07/31/19 10:00 74 14 07/31/19 08:00 36.8 C 68 18 131/80 98 07/31/19 07:58 36.8 C 69 15 131/80 97 PG Care Time/CCT Total # of Minutes Spent Total Time Spent with Patient: 35 minutes total time spent is greater than 50% in coordination of care (as documented) at patient's floor/unit and/or counseling patient/family discussion of care with nursing staff
[2019-07-31] MEDS ORDERED: chlordiazePOXIDE ALCOHOL WITHDRAWL 25MG PO STA (18:25)
[2019-07-31] MEDS ORDERED: LORazepam 1 MG/2 ML VIAL IV PRN (18:25)
[2019-07-31] MEDS: chlordiazePOXIDE HCl 25 MG CAP PO SCH ×2 (19:21→19:32)
[2019-07-31] MEDS: HEPARIN SODIUM/DEXTROSE 25,000 UNITS/500 ML BAG IV SCH (19:26)
[2019-08-01] MEDS: chlordiazePOXIDE HCl 25 MG CAP PO SCH ×3 (00:57→11:51)
[2019-08-01] MEDS: SODIUM CHLORIDE 0.9% 1000ML 1,000 ML IV SCH ×2 (04:59→13:00)
[2019-08-01 06:44] LABS: Partial Thromboplastin Ratio 1.6; Partial Thromboplastin Time 43.9 Seconds (21.0-31.0)
[2019-08-01] MEDS ORDERED: HEPARIN IV BOLUS 3,000 UNITS in SYRINGE 0 ML IV ONE (07:45)
[2019-08-01] MEDS: MULTIVITAMIN TAB PO SCH (08:36)
[2019-08-01] MEDS: INSULIN ASPART 100 UNITS/ML 3 ML PEN SC SCH ×2 (08:51→13:17)
[2019-08-01] MEDS ORDERED: FOLIC ACID 1 MG TAB PO SCH (09:00)
[2019-08-01] MEDS ORDERED: THIAMINE HCL 100 MG TAB PO SCH (09:00)
[2019-08-01 10:52] LABS: Hematocrit (blood only) 40.8 % (42-52); Hemoglobin 14.2 g/dL (14.0-18.0); Mean Corpuscular Hemoglobin 33.6 pg (25-34); Mean Corpuscular Volume 96.5 fL (80-100); Mean Platelet Volume 11.2 fL (7.4-10.4); Platelet Count 100 K/uL (130-400); RDW Coefficient of Variation 12.9 % (11.5-14.5); RDW Standard Deviation 44.9 fL (36.4-46.3); Red Blood Count 4.23 M/uL (4.7-6.1); White Blood Count 3.22 K/uL (4.8-10.8)
[2019-08-01 10:57] LABS: Mean Corpuscular Hgb Conc 34.8 g/dL (32-36)
[2019-08-01 11:12] LABS: Albumin Level 2.9 gm/dl (3.4-5.0); BUN Creatinine Ratio 10.5 (10-20); Calcium 8.8 mg/dl (8.5-10.1); Creatinine Clr Calc Pharmacy 101.5 ml/min; Est GFR (African American) 102.9; Est GFR (Non-African American) 88.8; Magnesium 1.8 mg/dl (1.8-2.4); Potassium 3.9 mmol/L (3.5-5.1)
[2019-08-01 11:15] LABS: Albumin Globulin Ratio 0.7 (0.9-2); Bilirubin,Total 0.7 mg/dl (0.2-1); Globulin 3.9 gm/dl (2.5-4.0); Total Protein 6.8 gm/dl (6.4-8.2)
--- NOTE | 2019-08-01 11:16 | Oncology Consultation ---
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 I suspect this is attributable to his liver disease, especially in the context of dehydration due to heavy alcohol use and his travel. He is feeling better on blood thinners and can likely be switched to an oral agent. He has no personal or family history to suggest an inherited thrombophilia. Given that he has an adequate alternative explanation for this event, I don't think a hypercoagulable state workup is needed at this time. I will see him in the office to discuss duration of therapy and the role of additional testing at a later date. Present on Admission?: Yes (2) Thrombocytopenia: He is mildly thrombocytopenic. This is most likely related to splenomegaly as a result of his liver disease. His platelets are adequate for hemostasis and are not a contraindication for anticoagulation. Present on Admission?: Yes (3) Cirrhosis: Mr. Rios's liver disease is likely worsening. He now has a few sequelae, including splenomegaly with cytopenias and the SMV thrombosis. He should probably start following with a vocal music instructor. We also discussed the critical importance of taking better care of his liver health. This includes better comp liance with his anti-diabetic medications and a major reduction or even cessation of his alcohol use. His liver disease is compensated at this time but he is at risk for developing more severe cirrhosis or even ESLD if he does not change some of his habits. Present on Admission?: Yes History of Present Illness Reason for Consultation: Mesenteric vein thrombosis Attending Physician: Kayleen Elliott MD History of Present Illness Mr. Rios is a 64 year old man with a history of diabetes and alcohol abuse. He does not drink daily, but binges heavily on weekends. He had a liver biopsy a few years ago and was told he had fatty liver disease. However, he's never had any specific management for liver disease. He was traveling with his family last week and was drinking heavily the entire time. He started to develop some cramping and gas pains that he attributed to constipation. However, starting on the day he came to the ER, he began to have acute abdominal pain when he ate. CT on arrival revealed an acute thrombosis of his superior mesenteric vein with extension into his portal vein. There was no evidence of arterial thrombosis. He is now on heparin and feeling better. He has eaten some soft foods today and had no pain. He has no history of thromboembolic disease that he can recall. He also has no family history of venous or arterial thromboembolism, though he does have a family history of liver disease. His bowel habits had been normal prior to the last few days and he denied any hematochezia, melena, or changes in the caliber or consistency of his stool. His weight has been stable and he has no other acute or worsening issues. Allergies Allergy/AdvReac Type Severity Reaction Status Date / Time No Known Allergies Allergy Verified 07/30/19 19:32 Home Medications Home Medications Medication Instructions Recorded Confirmed Type multivitamin tablet 1 tab PO DAILY #90 tab 07/20/19 07/30/19 Rx metformin 750 mg PO DAILY 07/30/19 07/30/19 History Patient History Medical History Cirrhosis (Chronic) Alcoholism (Chronic) Diabetes (Chronic) Surgical History No pertinent past surgical history Family History Father Alcoholism, Onset Age: 50 Cirrhosis Brother Alcoholism Social History Preferred Language: Kazakh Communication Ability: Effective Beliefs That Will Affect Care: None Current Living Situation: Spouse Feels Safe at Home: Yes Safety Concerns: Feels Safe At This Time Smoking Status: Never smoker Do You Dip or Chew Tobacco: No ; Hx Alcohol Use: Yes Alcohol type: beer Hx Substance Use: No Review of Systems Constitutional: no fever, no fatigue and no weight loss Respiratory: no cough and no dyspnea Cardiovascular: no chest pain, no palpitations and no edema Gastrointestinal: as per Subjective / HPI Genitourinary: no dysuria and no hematuria Musculoskeletal: no back pain No bone pain Integumentary: no rash Neurologic: no dizziness and no headache(s) Hematologic / Lymphatic: no easy bleeding and no lymphadenopathy Physical Exam Constitutional: comfortable and + overweight; no acute distress ENMT: external ear and nose normal, oropharynx normal Respiratory: normal respiratory effort, lungs clear to auscultation Cardiovascular: RRR, no murmur, no edema Gastrointestinal (Abdomen): Inspection/Auscultation: normal bowel sounds; abdomen not distended Percussion/Palpation: abdomen soft; abdomen nontender Skin: no rashes, warm and dry Psychiatric: A+Ox3, euthymic affect Lymphatic: no cervical or axillary lymphadenopathy Results & Data Vital Signs (Past 12 Hours) Vital Signs Temp Pulse Pulse Pulse Resp BP Pulse Ox 08/01/19 08:46 65 08/01/19 08:00 36.6 C 61 17 120/74 95 08/01/19 02:49 36.6 C 62 16 104/62 93 08/01/19 01:34 64 07/31/19 23:57 36.7 C 66 16 117/61 97 Laboratory Results Laboratory Results - last 24 hr 07/31/19 07/31/19 07/31/19 07:56 11:34 16:54 WBC RBC Hgb Hct MCV MCH MCHC RDW Std Deviation RDW Coeff of Sharif Plt Count MPV APTT PTT Ratio Sodium Potassium Chloride Carbon Dioxide Anion Gap BUN Creatinine Est Cr Clr Drug Dosing Est GFR ( Amer) Est GFR (Non-Af Amer) BUN/Creatinine Ratio Glucose POC Glucose 161 H 170 H 138 H Calcium Magnesium Total Bilirubin AST ALT Alkaline Phosphatase Total Protein Albumin Globulin Albumin/Globulin Ratio Folate 07/31/19 07/31/19 08/01/19 18:36 20:58 05:41 WBC RBC Hgb Hct MCV MCH MCHC RDW Std Deviation RDW Coeff of Sharif Plt Count MPV APTT 43.9 H PTT Ratio 1.6 Sodium Potassium Chloride Carbon Dioxide Anion Gap BUN Creatinine Est Cr Clr Drug Dosing Est GFR ( Amer) Est GFR (Non-Af Amer) BUN/Creatinine Ratio Glucose POC Glucose 182 H Calcium Magnesium Total Bilirubin AST ALT Alkaline Phosphatase Total Protein Albumin Globulin Albumin/Globulin Ratio Folate 18.95 08/01/19 08/01/19 08/01/19 07:15 10:20 10:20 WBC 3.22 L RBC 4.23 L Hgb 14.2 Hct 40.8 L MCV 96.5 MCH 33.6 MCHC 34.8 RDW Std Deviation 44.9 RDW Coeff of Sharif 12.9 Plt Count 100 L MPV 11.2 H APTT PTT Ratio Sodium 138 Potassium 3.9 Chloride 108 H Carbon Dioxide 25 Anion Gap 5.0 BUN 10 Creatinine 0.92 Est Cr Clr Drug Dosing 101.5 Est GFR ( Amer) 102.9 Est GFR (Non-Af Amer) 88.8 BUN/Creatinine Ratio 10.5 Glucose 240 H POC Glucose 124 H Calcium 8.8 Magnesium 1.8 Total Bilirubin 0.7 AST 55 H ALT 62 Alkaline Phosphatase 98 Total Protein 6.8 Albumin 2.9 L Globulin 3.9 Albumin/Globulin Ratio 0.7 L Folate Diagnostic Findings CT A/P 07/31/19: IMPRESSION: 1. No evidence of bowel obstruction. No evidence of free air 2. No evidence of acute diverticulitis. No evidence of acute appendicitis 3. No renal, ureteral, or bladder calculi identified 4. Lesley mesentery with trace free pelvic fluid. Likely diagnostic considerations include mesenteric panniculitis, pancreatitis, or venoocclusive disease. Lymphoma is also within differential, but not felt likely as the patient's mesenteric lymph nodes do not exceed 1 cm in short axis. 5. Splenomegaly CTA abdomen, 07/31/19: IMPRESSION: 1. No evidence of arterial stenosis or occlusion 2. 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 (1) Cirrhosis Hepatic cirrhosis type: unspecified hepatic cirrhosis Ascites presence: without ascites Qualified Code(s): K74.60 - Unspecified cirrhosis of liver
[2019-08-01 15:03] LABS: Partial Thromboplastin Ratio 1.9
[2019-08-01 15:08] LABS: Partial Thromboplastin Time 51.7 Seconds (21.0-31.0)
--- NOTE | 2019-08-01 15:14 | Discharge Summary ---
Date of Service August 01, 2019 Admission HPI Per Admitting Provider 64-year-old male with history of diabetes, fatty liver presents with abdominal pain, bloating and decreased appetite x1 week. Patient reports being on vacation at [facility] from July 18 to July 25. He reports 2-hour flight and then 2-hour car ride to destination during which he was very sedentary. Then he partied hard with family for about 3 days, drank alcohol pretty much every dayChampion in the morning and a beer every hour until late at night with very little fluid intake. 5 days into his trip he developed abdominal cramping, bloating and decreased appetite and he had not had a bowel movement for about 3 days at that point. He finally had a normal bowel movement 2 days later. He returned last Saturday on the with similar symptoms and treated constipation with laxative after which she had some diarrhea but stool was nonbloody and not dark. He has become constipated again but has also had very little intake since start of symptoms. He also reports discomfort when he does attempt to eat. He denies any fever, chills, headache, lightheadedness, shortness of breath, chest pain, nausea, vomiting, hematuria, hematochezia, melena, dysuria. Reports history of fatty liver since biopsy at age 39-40. He reports elevated liver enzymes since age 27, his AST has usually been in the 150s. He reports being a heavy drinker most of his life, mainly binge drinks when he is social on the weekends especially. 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 Fatty liver/possible early cirrhosis Hyperglycemia/diabetes type 2 Thrombocytopenia likely secondary to liver disease Alcohol abuse Obesity Discharge Exam Physical examination General patient appears to be comfortable, not in acute distress HEENT: Atraumatic , normocephalic /no jaundice /no pallor /anicteric /no dry mucous membrane /normal external ear inspection Neck: Supple /no swelling /central trach Heart: S1/S2 normal/regular rate and rhythm/no gallop /no rub /no murmur Lungs: Clear to auscultation bilaterally/normal chest with expansion/no rhonchi/no rales/no wheezing/no use of accessory muscles of respiration Abdomen: Soft/nontender/no guarding/no rebound/no organomegaly/no pulsatile mass Musculoskeletal: No swelling/no edema/no tenderness/normal range of motion Neuro exam: Awake alert oriented 3/cranial nerves II through XII appear to be intact/sensation intact/moves all extremities/no abnormal movements Psychiatric evaluation: No depressed mood/normal affect Skin: No rash on exposed skin area/no erythema Extremity: Normal pulse/no pitting edema/no clubbing or cyanosis Endocrine/lymphatic: No obvious lymphadenopathy /no lymphedema Discharge Data Allergies Allergy/AdvReac Type Severity Reaction Status Date / Time No Known Allergies Allergy Verified 07/30/19 19:32 Consultations 07/30/19 21:51 ED Decision to Admit Stat 07/31/19 00:07 Consult Gastroenterology Routine 07/31/19 15:00 Consult Oncology Routine Ordered Studies 07/30/19 18:43 CT abd pelvis wo con Stat 07/30/19 20:08 CT angio abdomen pelvis w con Stat Hospital Course (1) Superior mesenteric vein thrombosis: Abdominal pain on admission secondary to above Only risk factor was binging and alcohol for 2 weeks, plus early liver cirrhosis evident by splenomegaly increase, increased portal hypertension Also has confirmed fatty liver with biopsy, GI consult appreciated, requested oncologist/comber fixer consult. Dr. Eduardo kindly evaluated the patient, does not think that hypercoagulable work-up is necessary given his lack history of inherited thrombophilia, also his splenomegaly and cytopenias can indicate an early stage of liver cirrhosis, at this point he recommended Eliquis for anticoagulation, and will follow up the patient as an outpatient Had a discussion with patient about the need of having age-appropriate cancer screening including colonoscopy and PSA Continue heparin with close monitoring of platelet (2) Portal vein thrombosis: As above (3) Diabetes: (4) Fatty liver determined by biopsy: (5) Thrombocytopenia: Monitor closely while on anticoagulation Could be secondary to venous thrombosis and platelets consumption Dr. Eduardo will follow him up as an outpatient He will continue on his oral hypoglycemic and follow-up with his primary care physician (6) Alcoholism: Instructed to abstain from alcohol Total Time Total Time Spent Total Time Spent (In Minutes): 35 minutes total time spent is greater than 50% in coordination of care (as documented) at patient's floor/unit and/or counseling patient/family discussion of care with nursing staff Discharge Plan Discharge Items Patient Disposition: Home - Self-Care Reason For Visit: SMV/PORTAL VEIN THROMBOSIS Discharge Diagnosis: Abdominal pain secondary to below Superior mesenteric vein thrombosis with extension to portal vein Fatty liver/possible early cirrhosis Hyperglycemia/diabetes type 2 Thrombocytopenia likely secondary to liver disease Alcohol abuse Obesity Discharge Goals: Decrease discomfort, Improve disease control and Improve function Activity: Resume your previous activity Lifting: Gradually increase as tolerated Bathing: No limitations Sexual Activity: When tolerated Driving/Machine Use: No limitations Weightbearing: Full weightbearing Non-emergency contact: Primary Care Provider and Oncologist Call non-emergency contact if: you have any medication questions and your symptoms worsen Follow-up/Referrals: Migue Adan MD [Primary Care Provider] - Diet: Carb Consistent or DM2 Addtl Provider Instructions: You were started on a blood thinner You cannot take any pain medicine [id number] except Tylenol All nonsteroidal anti-inflammatory drugs like large dose aspirin, Motrin, Aleve, naproxen interacts with your blood thinner medicine Abstain from alcohol drinking as discussed before During AAA Follow-up with addiction physician Prescriptions: New thiamine HCl (vitamin B1) [Vitamin B-1] 100 mg Tablet 100 mg PO QAM Qty: 30 RF: 0 folic acid 1 mg Tablet 1 mg PO QAM Qty: 30 RF: 0 Eliquis 5 mg tablet See Rx Instructions .ROUTE .COMPLEX Qty: 74 RF: 0 Continued multivitamin [Multiple Vitamins] tablet 1 tab PO DAILY Qty: 90 RF: 3 metformin 750 mg Tablet Extended Release 24 Hr 750 mg PO DAILY RF: 0 Stand-Alone Forms: Call Back Authorization, [facility]/Other Patient Handouts: Diabetes Alcohol Consumption, Diabetes Supervisor [employer] Complications, Diabetes Resources, Diabetes Type 2 Coping, Diabetes Type 2 Oral Meds, Diabetes Healthy Meals, Diabetes Carbs, Diabetes Exercise Benefits Discharge Orders: Discharge Order (Routine); Ordered 08/01/19 Ordered By: Kayleen Elliott Admission Data Admit Date/Time: 07/30/19 23:31 Attending Provider: Kayleen Fernandez Admit Provider: Augustine Euceda Primary Care Provider: Migue Adan Other Providers: Augustine Euceda ; Kapil Garcia ; Ravi Eisenberg V Service: Telemetry
--- NOTE | 2019-08-01 15:20 | Gastroenterology Progress Note ---
Date of Service August 01, 2019 Assessment & Plan (1) Superior mesenteric vein thrombosis: Oncology feels like this is secondary to cirrhosis. Cirrhosis is possible etiology abd pain--presumably from acute SMV thrombosis. resolved fatty liver--can be secondary to ETOH---Discussed with patient that I recommend Fibroscan at [place] which can be done on anticoagulation because is not invasive and depending on results may need liver biopsy when off anticoagulation ETOH--recommend complete abstinence especially with possibility he has cirrhosis already. thrombocytopenia--presumably from splenomegaly mildly enlaged mesenteric nodes--not pathologic size Discussed with patient regarding f/u with me in the office. . Subjective cc f/u abd pain, SMV thrombosis HPI Pt denies abd pain. Tolerating solid food. Physical Exam Constitutional: WD/WN, vitals as above Cardiovascular: RRR, no murmur, no edema Gastrointestinal (Abdomen): normal bowel sounds, soft, nontender, no hepatosplenomegaly Psychiatric: A+Ox3, euthymic affect Results & Data Vital Signs (Past 12 Hours) Vital Signs Temp Pulse Pulse Resp BP Pulse Ox 08/01/19 08:46 65 08/01/19 08:00 36.6 C 61 17 120/74 95
[2019-08-03] MEDS ORDERED: chlordiazePOXIDE HCl 5 MG CAP PO SCH (22:00)
== END 2019-08-01 15:20 | disposition home or self-care (01) | DRG 442 ==
LOC: ED 18:37 → 1E 23:31 → SUATTDRO 23:31 → 1E 07-31 → 2S 07-31 16:26